=== PATIENT | female | born 1985 | race Caucasian/White ===

== ENCOUNTER 2017-02-01 08:35 | Emergency (ER) | payer BC ==
[~2017-02-01] VITALS: Ht 162.6 cm; Wt 56.7 kg
[~2017-02-01 08:35] MED LIST: IBUPROFEN600 MG ORAL; ZOFRAN4 MG ORAL
[2017-02-01] MEDS ORDERED: Lidocaine 1% 10mg/ml/Epi 0.005mg/ml 30ml vial INJ ONE (09:00)
[2017-02-01] MEDS ORDERED: Bactrim DS (160mg/800mg) tab ORAL ONE (09:00)
[2017-02-01] MEDS ORDERED: Lidocaine HCl 2% Jelly 5ml Tube TOPIC ONE (09:00)
[2017-02-01] MEDS ORDERED: Oxycodone/Acetaminophen 5-325 ORAL ONE (09:00)
--- NOTE | 2017-02-01 10:06 | Emergency Room Report ---
History of Present Illness General Chief Complaint: Skin Rash/Abscess Source: Patient Present Illness HPI In [place] with possible spider bite. Continued swelling in [place]. Plane ride home 16 hours with increased swelling and pain. No fevers chills, though feels not-well. No NVD. Had been squeezing. Pain 7/10, burning and swelling, not radiate. Tetanus UTD. No dysuria, on BCP. Allergies: Coded Allergies: No Known Allergies (Unverified , 09/15/15) Patient History Past Medical History: see triage record Social History Narrative honeymoon. drywall mechanic Last Menstrual Period: 12/02/16 (menses every 8 weeks d/t bcp) Now: No Reviewed Nursing Documentation: PMH: Agreed, PSxH: Agreed Nursing Documentation-PMH Past Medical History: No Stated History Hx Neurological Problems: Yes - MIGRAINE Review of Systems All Other Systems: negative except mentioned in HPI Physical Exam Vital Signs Date Time Temp Pulse Resp B/P Pulse Ox O2 Delivery O2 Flow Rate FiO2 02/01/17 08:43 98.8 79 16 131/86 95 Room Air General Appearance: well appearing, no apparent distress Head: normocephalic, atraumatic Eyes: bilateral eye PERRL, bilateral eye normal inspection ENT: hearing grossly normal, normal voice, moist mucus membranes Neck: full range of motion, supple Respiratory: no respiratory distress, speaking full sentences Cardiovascular #1: regular rate, rhythm Gastrointestinal: normal inspection Musculoskeletal: normal inspection, gait/station normal, normal range of motion Neurologic: alert, oriented x3, grossly normal Psychiatric: mood/affect normal Skin: other - abscess R lower back with fluctuance Procedures Incision and Drainage Incision and Drainage : Consent: Verbal Blade Size: 11 I & D Procedure: betadine prep, sterile drapes applied, sterile dressing applied, gauze wick placed Wound Location: back Wound's Depth, Shape: into muscle Wound Explored: contaminated - drain 3 ml pus Irrigated w/ Saline (ccs): 20 Anesthesia: Lidocaine w/ Epi Patient Tolerated: Well Complications: None Medical Decision Making Diagnostic Impression: Primary Impression: Abscess ER Course Abscess lower back. Needs antibiotics and I and D. Treat with analgesics. I and D of abscess. Tolerated well. Discussed further care. Patient stable for outpatient observation and treatment. Last Vital Signs Date Time Temp Pulse Resp B/P Pulse Ox O2 Delivery O2 Flow Rate FiO2 02/01/17 10:30 98.8 87 16 121/75 100 Room Air Status: improved Disposition: HOME, SELF-CARE Condition: Improved Scripts Trimethoprim/Sulfamethoxazole 160/800* (BACTRIM DS TABLET*) 1 Each Tablet 1 TAB ORAL Q12H, #14 TAB 0 Refills Prov: Tam Black M.D. 02/01/17 Tramadol Hcl* (ULTRAM*) 50 Mg Tablet 50 MG ORAL Q6H Y for For Pain, #10 TAB 0 Refills Prov: Tam Black M.D. 02/01/17 Ibuprofen* (MOTRIN*) 600 Mg Tablet 600 MG ORAL Q6H Y for For Pain, #20 TAB Prov: Tam Black M.D. 02/01/17 Referrals: NOT CHOSEN [facility]/,REFERRING (PCP) Tam Black M.D. February 01, 2017 10:06
[2017-02-01] MEDS ORDERED: BACTRIM DS TAB1 EAC1 ORAL (10:08)
[2017-02-01] MEDS ORDERED: IBUPROFEN600 MG ORAL (10:08)
[2017-02-01] MEDS ORDERED: TRAMADOL HCL50 MG ORAL (10:08)
[2017-02-01 10:20] VITALS: BP 121/75
[2017-02-01 10:30] VITALS: BP 121/75
== END 2017-02-01 10:30 | disposition home or self-care (01) ==
LOC: EMR 09:18
DX: L02.212 Cutaneous abscess of back [any part, except buttock and flank] (principal)
CPT/HCPCS: 10060